=== PATIENT | male | born 1930 | race Caucasian/White ===

== ENCOUNTER 2016-10-21 02:04 | Inpatient (IN) | payer OTHER ==
[~2016-10-21] VITALS: Ht 188 cm; Wt 88.5 kg
[~2016-10-21 02:04] MED LIST: ASPIRIN EC81 M1 PO; FLONASE ALLERG9.9 ML; METFORMIN HCL1000 M1 PO; PRAVACHOL40 M1 PO; PRESERVISION A1 EAC1
[2016-10-21] MEDS ORDERED: ANIMAL CHEWS1 EACH PO (06:38)
[2016-10-21] MEDS ORDERED: ASPIRIN EC325 M2 PO (08:54)
[2016-10-21] MEDS ORDERED: DILAUDID2 M1 PO (08:54)
[2016-10-21] MEDS ORDERED: MIRALAX17 G1 PO (08:54)
[2016-10-21] MEDS ORDERED: PRILOSEC OTC20 M1 PO (08:54)
[2016-10-21] MEDS ORDERED: COLACE100 M1 PO (08:54)
[2016-10-21] MEDS ORDERED: MS CONTIN15 M2 PO (08:54)
--- NOTE | 2016-10-21 09:00 | Patient Discharge Instructions ---
Discharge Instructions General Discharge Information You were seen/treated for: LEFT HIP PAIN RELATED TO OSTEOARTHRITIS You had these procedures: LEFT TOTAL HIP REPLACEMENT Watch for these problems: Increasing pain despite the use of pain medication. Increasing redness, warmth, swelling. Drainage of any type from incision. Inability to bear weight on left leg. Persistent nausea and vomitting. Fever greater than 101.5 degrees. Do not soak the wound: Yes No bath, but you may shower: Yes Other wound care: Keep wound clean and dry. No ointments of any type on or near incision at any time, no exceptions. Dressing will be changed by nursing on the second day after your surgery, daily dry dressing changes recommended thereafter. Special Instructions: Aspirin: Please take 325 mg twice daily as directed to help prevent the development of a blood clot. To protect your stomach, please take with food and please take prilosec as directed. Constipation: Pain medications can be very constipating. Please take colace and miralax as directed to ensure you are able to move your bowels. You may discontinue this medicaiton if you develop loose stool or diarrhea. If you are unable to move your bowels for several days, or if you are unable to pass gas at any time, please contact your dr. Diet Continue normal diet: Yes Recommended Diet: Diabetic Additional DIET Information: Advance as tolerated Activity Full Activity/No Limits: No Activity Self Limited: Yes Pounds, do NOT lift more than: 10 Activity Limited to: Weight bear as tolerated Acute Coronary Syndrome Inclusion Criteria At DC or during hospital stay patient has or had the following: ACS DIAGNOSIS No Discharge Core Measures Meds if any: Prescribed or Continued at Discharge Meds if any: NOT Prescribed or Continued at Discharge Congestive Heart Failure Inclusion Criteria At DC or during hospital stay patient has or had the following: CHF DIAGNOSIS No Discharge Core Measures Meds if any: Prescribed or Continued at Discharge Meds if any: NOT Prescribed or Continued at Discharge Cerebrovascular accident Inclusion Criteria At DC or during hospital stay patient has or had the following: CVA/TIA Diagnosis No Discharge Core Measures Meds if any: Prescribed or Continued at Discharge Meds if any: NOT Prescribed or Continued at Discharge Venous thromboembolism Inclusion Criteria VTE Diagnosis No VTE Type NONE VTE Confirmed by (Test) NONE Discharge Core Measures - Per Current guidelines, there needs to be overlap - treatment for the first 5 days of Warfarin therapy. - If discharged on Warfarin prior to 5 days of - overlap therapy, the patient will need to be - assessed for post discharge needs including - *Post discharge parental anticoagulation - *Warfarin and/or parental anticoagulation education - *Follow up date to check INR post discharge At least 5 days overlap therapy as Inpatient No Meds if any: Prescribed or Continued at Discharge Note: Overlap Therapy is Warfarin and Anticoagulant Meds if any: NOT Prescribed or Continued at Discharge
--- NOTE | 2016-10-21 09:01 | Admission Core Measures ---
Admission Meds I reviewed the following Meds: Current Medications Sig/Anai Start time Last Medication Dose Stop Time Status Admin Acetaminophen 975 MG ONCE 10/21 0000 NR (Tylenol) 10/21 2358 Cefazolin Sodium 2,000 MG ONCE 10/21 NR (Kefzol-Ancef Inj) 10/21 2358 Fluticasone 2 SPRAY DAILY 10/21 1000 AC Propionate (Flonase) Metformin HCl 1,000 MG 0800,1700 10/21 1700 AC (Glucophage) Oxycodone HCl 10 MG ONCE 10/21 0000 NR (Roxicodone) 10/21 2358 Pravastatin Sodium 40 MG DAILY 10/21 1000 AC (Pravachol) Acute Coronary Syndrome Inclusion Criteria ACS Diagnosis No Inpatient Core Measures LDL Reminder: If No, please order W/I first 24hr of stay Congestive Heart Failure Inclusion Criteria CHF Diagnosis No Cerebrovascular accident Inclusion Criteria CVA/TIA Diagnosis No Inpatient Core Measures Bedside Swallow Eval Reminder: If BSE failed, place ST order Antithrombotic Reminder: Order Antithrombotic Medication by end of day 2 Antithrombotic Reminder: Document Reason Antithrombotic Not ordered by end of day 2 AFIB/Flutter Reminder: If Present, add to problem list AFIB/Flutter Reminder: Order Anticoag Medication for pts with AFIB/Flutter Atherosclerosis Reminder: If Present, add to problem list LDL Reminder: If No, please order W/I first 24hr of stay PT Order Reminder: If No, please order Venous thromboembolism Inpatient Core Measures VTE Risk Factors: Age > 40, Surgery No [facility] VTE prophylaxis d/t No contraindications No VTE Pharm Prophylaxis d/t No contraindications Inclusion Criteria - Per Current guidelines, there needs to be overlap - treatment for the first 5 days of Warfarin therapy. - Parenteral Anticoagulation (IV or SC) needs to be - given along with Warfarin therapy. VTE Diagnosis No VTE Type NONE VTE Confirmed by (Test) NONE Problem List As ranked by this Provider includes Assessment & Plan 1. Unilateral primary osteoarthritis, left hip HOME MEDS Home Med List Aspirin (Ecotrin*) 81 MG TABLET. 1 TAB PO DAILY PROPHO (Reported) Aspirin (Ecotrin*) 325 MG TABLET.DR 1 TAB PO BID ANTICOAGULATION Docusate Sodium (Colace) 100 MG CAPSULE 1 CAP PO BID CONSITPATION Hydromorphone HCl (Dilaudid) 2 MG TABLET 1-2 TAB PO Q4-6 PRN PAIN Metformin HCl 1,000 MG TABLET 1 TAB PO BID DM II (Reported) Morphine Sulfate (Ms Contin) 15 MG TABLET.ER 1 TAB PO BID PAIN Multivitamin (Animal Chews) 1 EACH TAB.CHEW 1 TAB PO DAILY SUPP (Reported) Omeprazole Magnesium (Prilosec Otc) 20 MG TABLET.DR 1 TAB PO DAILY GI PROTECTION Polyethylene Glycol 3350 (Miralax) 17 GRAM POWD.PACK 1 PAC PO DAILY CONSTIPATION Pravastatin Sodium (Pravachol) 40 MG TABLET 1 TAB PO DAILY CHOLESTEROL ( Reported)
--- NOTE | 2016-10-21 09:12 | Surgical Discharge Summary ---
Visit Information Visit Dates Admission Date: 10/21/16 Discharge Date: 10/22/16 History of Present Illness Chief Complaint: Left hip pain related to osteoarthritis Medical History Isolation History: Standard Surgical History Pertinent Surgical History: non-contributory Review of Systems: See H&P Hospital Course Course Attending Physician: LIO AHMADI MD Primary Care Physician: PATIENT HAS NO PRIMARY CARE DR Hospital Course: Julio was admitted to the hospital on 10/21/2016 and underwent an elective left total hip replacement. He tolerated the procedure well and was transferred to a general surgical floor. His diet was advanced and tolerated and he was able to void spontaneously. He was evaluated and treated by physical therapy. At time of hospital discharge, his pain was controlled with oral pain medication, his vital signs were stable and within normal limts, and his neurovascular status was intact. Allergies: Coded Allergies: naproxen (From ALEVE) (Severe, HIVES 10/15/16) Disposition Summary Disposition Principal Diagnosis: Left hip unilateral primary osteoarthritis Additional Diagnosis: None Discharge Disposition: home health services Discharge Instructions General Discharge Information Code Status: Full Code Patient's Diet: Diabetic, advance as tolerated Patient's Activity: WBAT Follow-Up Instructions/Appts: Follow up with Dr. Ahmadi in 6 weeks from date of surgery Medications at Discharge Discharge Medications: Stop taking the following medications: Aspirin (Ecotrin*) 81 MG TABLET. ORAL DAILY Continue taking these medications: Metformin HCl (Metformin HCl) 1,000 MG TABLET 1 Tablet ORAL TWICE DAILY Pravastatin Sodium (Pravachol) 40 MG TABLET 1 Tablet ORAL DAILY Fluticasone Propionate (Flonase Allergy Relief) 50 MCG/ACTUATION SPRAY.SUSP DAILY Vit C/E/Zn/Coppr/Lutein/Zeaxan (Preservision Areds 2 Softgel) 250-200-40 CAPSULE TWICE DAILY Multivitamin (Animal Chews) 1 EACH TAB.CHEW 1 Tablet ORAL DAILY Start taking the following new medications: Aspirin (Ecotrin*) 325 MG TABLET. 1 Tablet ORAL TWICE DAILY Qty = 60 No Refills Docusate Sodium (Colace) 100 MG CAPSULE 1 Capsule ORAL TWICE DAILY Qty = 14 No Refills Instructions: DISCONTINUE USE IF YOU DEVELOP LOOSE STOOL OR DIARRHEA Hydromorphone HCl (Dilaudid) 2 MG TABLET 1-2 Tablet ORAL EVERY 4-6 HOURS as needed for PAIN Qty = 36 No Refills Morphine Sulfate (Ms Contin) 15 MG TABLET.ER 1 Tablet ORAL TWICE DAILY Qty = 2 No Refills Omeprazole Magnesium (Prilosec Otc) 20 MG TABLET.DR 1 Tablet ORAL DAILY Qty = 30 No Refills Polyethylene Glycol 3350 (Miralax) 17 GRAM POWD.PACK 1 Packet ORAL DAILY Qty = 7 No Refills Instructions: dissolve in water, DISCONTINUE USE IF YOU DEVELOP LOOSE STOOL OR DIARRHEA
--- NOTE | 2016-10-21 12:08 | RADIOLOGY REPORT ---
EXAMINATION: XR HIP, LEFT CLINICAL INFORMATION: Postop left hip COMPARISON: None TECHNIQUE: Two views of the left hip. FINDINGS: A left total hip arthroplasty is noted. A portion of the acetabular component is outside the [id number] of the examination on the lateral view A drain is noted overlying the left hip region. There is some air in the soft tissues compatible with postop change IMPRESSION: Left total hip arthroplasty without complication by x-ray. Slightly limited in that the acetabular component is incompletely visualized on the cross table lateral view
--- NOTE | 2016-10-21 12:50 | NUR ---
PT ARRIVED TO FLOOR VIA STRETCHER, AO, RA, NO C/O PAIN, +CMS AND + L PEDAL PULSE, L HIP DSG INTACT, IV IN PLACE W/ FLUIDS RUNNING, VSS, ORIENTED TO ROOM AND CALL LIGHT, ASSESSMENT COMPLETE, MEAL ORDERED, FAM @ BEDSIDE, WILL CONTINUE TO MONITOR.
[2016-10-21 13:13] VITALS: BP 130/70
[2016-10-21 14:33] VITALS: BP 118/70
--- NOTE | 2016-10-21 14:33 | PN- Orthopedic ---
Subjective Subjective: POST-OP NOTE: No complaints. Pain controlled. Out of bed without difficulty. No dizziness. No shortness of breath. No chest pains. Currently comfortable in a chair. Tolerating diet. No nausea. Due to void this evening. Objective Vital Signs and I&Os Vital Signs Date Time Temp Pulse Resp B/P B/P Pulse O2 O2 Flow FiO2 Mean Ox Delivery Rate 10/21 1313 94.6 63 20 130/70 96 Room Air Physical Exam: General - alert & oriented x 3. out of bed to chair. comfortable. Lungs - clear bilaterally. no w/r/r. Cardiac - s1s2. reg. Abdomen - soft. nontender. Extremities - warm bilaterally. no c/c/e. left hip dressing c/d/i. no hematoma. calves soft and nontender b/l. nvi. hemovac drain in place to suction. Current Medications: Current Medications Sig/Anai Start time Last Medication Dose Route Stop Time Status Admin Acetaminophen 1,000 MG Q6 10/21 1200 AC IV 10/22 0601 Acetaminophen 0 .STK-MED ONE 10/21 0633 DC PO Acetaminophen 975 MG ONCE 10/21 0000 DC PO 10/21 2359 Aspirin 325 MG BID 10/21 1000 AC PO Cefazolin Sodium 2 GM IQ8 10/21 1600 AC N/A 1 UNIT IV 10/22 0029 Cefazolin Sodium 2,000 MG ONCE 10/21 0000 DC IV 10/21 2359 Dextrose/Sodium 1,000 ML .[id number] 10/21 1315 AC Chloride IV Docusate Sodium 100 MG BID 10/21 1000 AC PO Fluticasone 2 SPRAY DAILY 10/22 1000 AC Propionate NIKOS Fluticasone 2 SPRAY DAILY 10/21 1000 DC Propionate NIKOS Hydromorphone HCl 2 MG Q4P PRN 10/21 1315 AC PO Hydromorphone HCl 4 MG Q4P PRN 10/21 1315 AC PO Metformin HCl 1,000 MG 0800,1700 10/21 1700 DC PO Metformin HCl 1,000 MG 0800,1700 10/21 1700 AC PO Morphine Sulfate 2 MG Q2P PRN 10/21 1315 AC IV Omeprazole 40 MG DAILY AC 10/22 0700 AC PO Ondansetron HCl 4 MG Q6P PRN 10/21 1315 AC IV Oxycodone HCl 0 .STK-MED ONE 05/31 0733 DC PO Oxycodone HCl 10 MG ONCE 10/21 0000 DC PO 10/21 2359 Polyethylene Glycol 17 GM DAILY 10/21 1000 AC PO Pravastatin Sodium 40 MG DAILY 10/22 1000 AC PO Pravastatin Sodium 40 MG DAILY 10/21 1000 DC PO Promethazine HCl 12.5 MG Q6P PRN 10/21 1315 AC IV 10/28 0859 Assessment/Plan Assessment/Plan This 86 year old male with hx htn, niddm, hld, is POD#0 s/p left total hip replacement, anterior approach for unilateral primary osteoarthritis pain controlled tolerating diet due to void this evening already of of bed with RW. continue PT. asa bid - dvt ppx srinivasa-operative ancef x 2 doses f/u am labs monitor hemovac drain, and remove in am if output stable likely d/c home tomorrow will d/w Core Measures/Miscellaneous Venous Thromboembolism VTE Risk Factors: Age > 40, Surgery VTE Contraindications: No Contraindications VTE Diagnosis: No VTE Type: NONE VTE Confirmed by (Test): NONE Beta Geno Is Beta Geno a Home Med? No Antibiotics Is Patient on Antibiotics? Yes If Yes: prophylaxis
[2016-10-21 16:27] VITALS: BP 108/52
--- NOTE | 2016-10-21 16:41 | Operative Report ---
Operative/Inv Procedure Report Surgery Date: 10/21/16 Name of Procedure: Left total hip replacement Pre-Operative Diagnosis: Primary left hip DJD Post-Operative Diagnosis: Same Estimated Blood Loss: 500 Surgeon/Clinical Sciences Professor: GALDINO SIMMONS,LIO Ferrer Anesthesia: block Operative/Procedure Note Note: Description of Procedure: The patient was taken to the operating room and positively identified. After induction of spinal anesthesia and administration of appropriate pre-operative antibiotics, the patient was positioned supine on the operating room table and all bony prominences were well padded. After performing a surgical timeout, the left lower extremity was prepped and draped in the usual sterile fashion. A direct anterior approach was made to the left hip. The incision was carried sharply through superficial soft tissues to the level of the fascia. Meticulous hemostasis was maintained with Bovie electocautery. The fascia over the tensor fascia matt muscle was opened sharply and the interval between the TFL and the sartorius was entered bluntly taking care to stay lateral to the lateral femoral cutaneous nerve. Retractors were placed around the femoral neck and the pericapsular fat was identified. The ascending branches of the lateral femoral circumflex vessels were identified and carefully coagulated. The pericapsular fat and anterior capsule were then resected. A napkin ring osteotomy was performed and the femoral head was removed without difficulty. Attention was then turned to the acetabulum. After appropriate placement of retractors, the acetabulum was exposed. Soft tissue was cleaned from the acetabular margin and notch. Overhanging osteophytes were removed and the teardrop was exposed. The acetabulum was then sequentially reamed to accept a 58 mm Dyke Tritanium hemispherical solid back shell. This was impacted into place in the appropriate position and fitted with a 36 mm Trident X3 zero degree polyethylene insert. Attention was then turned to the femur. After performing the appropriate ligament releases, the proximal femur was exposed. It was then sequentially broached to accept a size 7 Dyke Anato stem. This was trialed for leg length and stability. The trial component was removed and the final component was impacted into place. The trunnion was carefully cleaned and fit with a 36 mm, - 5 Biolox delta ceramic femoral head. The hip was reduced and put through a full range of motion and found to be stable. The articular space was then irrigated with sterile saline. The periarticular soft tissues were infilitrated with Marcaine. The fascial layer was closed with interrupted #1 vicryl suture and the skin was re-approximated with interrupted 2 -0 vicryl. The skin was closed with a running 3-0 V-Lock suture. Steri-strips and a sterile dressing were applied. The patient was awakened and taken to the recovery room in satisfactory condition.
[2016-10-21 18:25] VITALS: BP 118/60
[2016-10-21 22:07] VITALS: BP 110/54
[2016-10-22 02:17] VITALS: BP 102/56
[2016-10-22 06:00] VITALS: BP 108/56
[2016-10-22 07:55] LABS: ABSOLUTE BASOPHIL COUNT 0 /CUMM (0.0-0.2); ABSOLUTE EOSINOPHIL COUNT 0.5 /CUMM (0.0-0.7); ABSOLUTE GRANULOCYTE CT 4.5 /CUMM (1.4-6.5); ABSOLUTE LYMPH COUNT 0.9 /CUMM (1.2-3.4); ABSOLUTE MONOCYTE COUNT 0.7 /CUMM (0.10-0.60); BASOPHIL % 0.3 % (0.0-2.0); GRANULOCYTE % 68.1 % (42.2-75.2); HEMATOCRIT 30.5 % (42-52); MEAN CORPUSCULAR HGB 28.5 PG (27.0-31.0); MEAN CORPUSCULAR HGB CONC 33.8 G/DL (33.0-37.0); MEAN CORPUSCULAR VOLUME 84.5 FL (80.0-94.0); MEAN PLATELET VOLUME 8.3 FL (7.4-10.4); PLATELET COUNT 166 /CUMM (130-400); RBC DISTRIBUTION WIDTH 14.4 % (11.5-14.5); RED BLOOD CELL CT 3.61 /CUMM (4.70-6.10); WHITE BLOOD CELL COUNT 6.6 /CUMM (4.8-10.8)
--- NOTE | 2016-10-22 10:26 | PN- Orthopedic ---
Subjective Subjective: Minimal complaints of left hip pain. He is up and ambulatory with physical therapy without difficulty. He states he would like to be discharged home this morning. No fever no flulike illness, no chest pain or shortness of breath Objective Vital Signs and I&Os Vital Signs Date Time Temp Pulse Resp B/P B/P Pulse O2 O2 Flow FiO2 Mean Ox Delivery Rate 10/22 08 Room Air 10/22 0600 99.2 70 18 108/56 92 Room Air 10/22 0217 97.8 75 18 102/56 93 Room Air 10/21 2207 99.4 68 18 110/54 93 Room Air 10/21 1825 98.2 84 20 118/60 95 Room Air 10/21 1627 96.7 68 20 108/52 94 Room Air 10/21 1433 97.6 96 18 118/70 95 Intake & Output 10/22 1600 10/22 0800 10/22 0000 10/21 1600 10/21 0800 10/21 0000 Intake Total 1080 960 420 Output Total 530 945 Balance 550 15 420 Intake, IV 600 600 300 Intake, Oral 480 360 120 Number 0 Bowel Movements Output, 5 45 Drainage Output, Urine 525 900 Patient 195 lb Weight Weight Reported by Patient Measurement Method Physical Exam: Well-developed well-nourished no apparent distress. HEENT: Atraumatic, extraocular motion intact Neck: Supple, no lymphadenopathy Respiratory: No respiratory distress Extremities: No edema left lower extremity hip dressing in place, Dressing clean dry and intact Hemovac drain in place distally, this was pulled at the bedside without difficulty Mild thigh edema No signs of infection. No shortening or rotation Hip range of motion is limited and without unexpected pain Neurovascularly intact distally Bilateral calves are supple, nontender. Neuro: Alert and oriented x3 Psych: Mood affect normal, normal memory normal judgment. Skin: Warm and dry, no rash on exposed skin Results Last 48 Hours of Labs: Laboratory Tests 10/22 06 Chemistry Sodium (137 - 145 mmol/L) 131 L Potassium (3.5 - 5.1 mmol/L) 4.5 Chloride (98 - 107 mmol/L) 99 Carbon Dioxide (22 - 30 mmol/L) 26 Anion Gap (5 - 16) 6 BUN (9 - 20 mg/dL) 21 H Creatinine (0.7 - 1.2 mg/dL) 1.0 Estimated GFR (>60 ml/min) > 60 BUN/Creatinine Ratio (7 - 25 %) 21.0 Hematology CBC w Diff NO MAN DIFF REQ WBC (4.8 - 10.8 /CUMM) 6.6 RBC (4.70 - 6.10 /CUMM) 3.61 L Hgb (14.0 - 18.0 G/DL) 10.3 L Hct (42 - 52 %) 30.5 L MCV (80.0 - 94.0 FL) 84.5 MCH (27.0 - 31.0 PG) 28.5 RDW (11.5 - 14.5 %) 14.4 Plt Count (130 - 400 /CUMM) 166 MPV (7.4 - 10.4 FL) 8.3 Gran % (42.2 - 75.2 %) 68.1 Lymphocytes % (20.5 - 51.1 %) 13.7 L Monocytes % (1.7 - 9.3 %) 10.9 H Eosinophils % (0 - 5 %) 7.0 H Basophils % (0.0 - 2.0 %) 0.3 Absolute Granulocytes (1.4 - 6.5 /CUMM) 4.5 Absolute Lymphocytes (1.2 - 3.4 /CUMM) 0.9 L Absolute Monocytes (0.10 - 0.60 /CUMM) 0.7 H Absolute Eosinophils (0.0 - 0.7 /CUMM) 0.5 Absolute Basophils (0.0 - 0.2 /CUMM) 0 PUBS MCHC (33.0 - 37.0 G/DL) 33.8 Assessment/Plan Assessment/Plan POD #1 sp L MAXIMILIAN anterior approach Stable for DC home today, vna services. Continue aspirin for DVT prophylaxis Perioperative antibiotics completed Patient cleared physical therapy Mild hyponatremia, likely will improve when patient resumes regular diet, no sign of acute illness or confusion secondary to hyponatremia Follow-up with Dr. Cooper in 6 weeks' time Pain medication as needed Core Measures/Miscellaneous Venous Thromboembolism VTE Risk Factors: Age > 40, Surgery VTE Contraindications: No Contraindications VTE Diagnosis: No VTE Type: NONE VTE Confirmed by (Test): NONE Beta Geno Is Beta Geno a Home Med? No Antibiotics Is Patient on Antibiotics? Yes If Yes: prophylaxis
--- NOTE | 2016-10-22 10:42 | NUR ---
PT'S HEMOVAC DRAIN TAKEN OUT BY KEENA JOSEPH, PT AMBULATED TO BATHROOM AND NOTICED SCANT AMT OF BLOOD DRAINING FROM SITE, THIS RN REINFORCED DSG AND NO NEW DRAINAGE NOTED, ATTEMPTED TO NOTIFY PA, WILL CONTINUE TO MONITOR.
--- NOTE | 2016-10-22 12:29 | NUR ---
KEENA SHELTON ASSESSED PT BLEEDING S/P HEMOVAC REMOVAL- BLEEDING STOPPED- DRESSING REINFORCED- PT CLEAR FOR D/C. WILL CONTINUE TO MONITOR
== END 2016-10-22 12:48 | disposition home health service (06) | DRG 470 ==
LOC: SDA 02:04 → 2NA 02:04 → SDA 07:00 → ENRESERV 11:41 → 2NA 12:57 → ENPENDDIS 10-22 10:39 → 2NA 10-22 12:48
PROVIDERS: Nurse Practitioner; ADMIT Orthopaedic Surgery
PROC: 0SRB04A Replacement of Left Hip Joint with Ceramic on Polyethylene Synthetic Substitute, Uncemented, Open Approach (ICD-10-PCS; principal; 2016-10-21)
DX: M16.12 Unilateral primary osteoarthritis, left hip (principal); E11.9 Type 2 diabetes mellitus without complications; I10 Essential (primary) hypertension; Z79.84 Long term (current) use of oral hypoglycemic drugs; Z85.820 Personal history of malignant melanoma of skin
CPT/HCPCS: 2NASP; 36415; 73502-LT; 82436; 88304; 97110-GO; 97112-GO; 97116-GO; 97161-GP; 97530-GO; J0131; J0690; J0735; J2405; J2550; J7042